=== PATIENT | female | born 2000 | race Caucasian/White ===

== ENCOUNTER 2018-11-06 16:44 | Emergency (ER) | payer OTHER ==
[~2018-11-06] VITALS: Ht 170.2 cm; Wt 51.7 kg
[2018-11-06 16:56] VITALS: BP 109/66
--- NOTE | 2018-11-06 18:21 | NUR ---
PATIENT AMBULATED TO BED 2
--- NOTE | 2018-11-06 18:33 | NUR ---
PT BELIEVES SHE MAY HAVE A RICE IN HER RIGHT NOSTRIL AND PHARYNX DISCOMFORT ---WHILE EATING PT BEGAN COUGHING AND MAY HAVE ASPIRATED RICE UP TO HER NOSE----C/O ITCHING. PATIENT STATES PAIN OF 2/10 AT THIS TIME. PATIENT POSITIONED FOR COMFORT; HOB ELEVATED; BEDRAILS UP X1; BED DOWN. ER MD MADE AWARE OF PT STATUS.
[2018-11-06] MEDS ORDERED: PHENYLEPHRINE 0.5% 15 ML BTL NS ONE (18:55)
--- NOTE | 2018-11-06 19:00 | NUR ---
Patient discharged with v/s stable. Written and verbal after care instructions given and explained. Patient alert, oriented and verbalized understanding of instructions. Ambulatory with steady gait. All questions addressed prior to discharge. ID band removed. Patient advised to follow up with PMD. Rx of AUGMENTIN & FLONASE given. Patient educated on indication of medication including possible reaction and side effects. Opportunity to ask questions provided and answered.
[2018-11-06 19:01] VITALS: BP 114/65
== END 2018-11-06 19:00 | disposition home or self-care (01) ==
LOC: EDBD 16:44 → MED 16:44
DX: J06.9 Acute upper respiratory infection, unspecified (principal)
CPT/HCPCS: 99283